=== PATIENT | male | born 1980 ===

== ENCOUNTER 2020-08-19 12:49 | Outpatient (CLI) | payer OTHER ==
--- NOTE | 2020-08-19 15:03 | XRay Report ---
CERVICAL SPINE 4 VIEWS INDICATION / CLINICAL INFORMATION: CHRONIC neck PAIN. COMPARISON: None available. FINDINGS: No significant skeletal abnormality. Alignment is normal. Signer Name: Titus Rm MD FACJarrod Signed: 08/19/2020 3:02 PM Workstation Name: [id number]
--- NOTE | 2020-08-19 15:25 | XRay Report ---
Lumbar spine-3 views INDICATION: SCIATICA PAIN. COMPARISON: None. IMPRESSION: Normal alignment. No significant discogenic DJD or facet arthropathy. No acute osseous or soft tissue abnormality. Signer Name: Guanakito Alexis MD Signed: 08/19/2020 3:24 PM Workstation Name: [id number]
== END 2020-08-19 12:50 | disposition home or self-care (01) ==
LOC: XRAY 12:49
PROVIDERS: ATTEND Internal Medicine
DX: M54.2 Cervicalgia (principal); M54.30 Sciatica, unspecified side
CPT/HCPCS: 72040; 72100